=== PATIENT | male | born 1940 | race Caucasian/White ===

== ENCOUNTER 2022-06-16 08:13 | Outpatient (CLI) | payer MEDICARE, OTHER, SELFPAY ==
[2022-06-16 09:13] LABS: Albumin* 4.5 g/dL (3.3-5.0); Chloride* 101 mmol/L (96-114); Potassium* 4.3 mmol/L (3.6-5.1); Sodium* 139 mmol/L (135-149)
[2022-06-16 09:15] LABS: Aspartate Amino Transferase* 28 U/L (12-35); Bilirubin Total* 0.6 mg/dL (0.1-1.5); Carbon Dioxide* 32 mmol/L (20-32); Cholesterol* 151 mg/dL (90-199); Creatinine* 0.9 mg/dL (0.5-1.5); Estimated Glomerular Filt Rate 85 ml/min; Total Protein* 6.8 g/dL (6.0-8.3)
[2022-06-16 09:16] LABS: Alanine Aminotransferase* 18 U/L (4-50); Alkaline Phosphatase* 67 U/L (40-150); Blood Urea Nitrogen* 15 mg/dL (7-30); Calcium* 9.8 mg/dL (8.4-10.6); Glucose* 95 mg/dL (60-115); HDL Cholesterol* 50 mg/dL (>=40); LDL Cholesterol Calculated 80 mg/dL (<100); Triglycerides* 103 mg/dL (40-149)
== END 2022-06-16 08:14 | disposition home or self-care (01) ==
LOC: NFLDREF 08:14
PROVIDERS: PCP Internal Medicine; Visit Provider Internal Medicine
DX: E78.5 Hyperlipidemia, unspecified (principal); I10 Essential (primary) hypertension; Z12.5 Encounter for screening for malignant neoplasm of prostate
CPT/HCPCS: 80053; 80061; 84153

== ENCOUNTER 2023-06-26 07:32 | Outpatient (CLI) | payer MEDICARE, OTHER, SELFPAY ==
--- OUTSIDE RECORDS SUMMARY | 2023-06-28 05:52 | XMS_ITS | Continuity of Care Document ---
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 Name Role Phone Diogenes Galindo MD Unavailable Unavailable Allergies, Adverse Reactions, Alerts Substance Reaction Status Criticality Sulfa (Sulfonamide Antibiotics) Active No Information Medications Medication Instructions Dosage Effective Dates (start - stop) Status Comments tramadol 50 mg tablet Take 1 tablet at bedtime as needed - Active SIMVASTATIN (unknown strength) Not Available - Active HYDROCHLOROTHIAZIDE (unknown strength) Not Available - Active Procedures Procedure Date Postop Followup Visit Postop Followup Visit PSF, Lumbar - PA PSF - Additional Level(s) - PA Lami, Facetectomy/Foraminotomy, Lumbar ( Stenosis) Lami, Facetectomy/Foraminotomy - Additio nal Level(s) - PA Posterior Instrumentation, 3-6 Segments - PA PSF, Lumbar PSF - Additional Level(s) Lami, Facetectomy/Foraminotomy, Lumbar ( Stenosis) Lami, Facetectomy/Foraminotomy - Additio nal Level(s) Posterior Instrumentation, 3-6 Segments Office/Outpatient Visit,Est, Mod 2022 Office/Outpatient Visit,Est, Mod 2022 X-Ray Exam Lwr Spine, Min 4 Views Postop Followup Visit Postop Followup Visit Lami, Facetectomy/Foraminotomy, Lumbar ( Stenosis) Lami, Facetectomy/Foraminotomy - Additio nal Level(s) - PA Lami, Facetectomy/Foraminotomy, Lumbar ( Stenosis) Lami, Facetectomy/Foraminotomy - Additio nal Level(s) Office/Outpatient Visit,Est, Mod 2020 Physician Telephone Evaluation 11-20 Min Office/Outpatient Visit,New, Mod 2018 Advance Directives Directive Yes / No Effective Date File Name No Information Encounters Encounter Description Practice Location Reason(s) For Visit Diagnoses Date Provider Providers Copied on Encounter [facility], [address], [facility], [id number] , [place] tel:[phone] [facility] No Information 3 Mateo Shetty. [facility], [address] [place] [address], [id number], [place]. tel:[phone] [facility], [address], [place], [place], [id number] , [place] tel:[phone] [facility] Encounter for follow-up examination after completed treatment for conditions other than malignant neoplasm 3 Mateo Shetty. [facility], [address] [place] [address], [facility] [address], [place], [id number], [place]. tel:[phone] Referring Provider: Nico Reed, [facility] [address] [place], [address]. tel:[phone] [facility], [address], [facility], [place], [id number] , [place] tel:[phone] [facility] Encounter for follow-up examination after completed treatment for conditions other than malignant neoplasm 3 Reuben Fried. [facility], [address] [place] [address], [address], [place]. tel:[phone] Referring Provider: Nico Reed, [facility] [address] [place], [address]. tel:[phone] [facility], [address], [facility] [place], [id number] , [place] tel:[phone] [facility] No Information Raymond-0 3 Reubenpramod Fried. [facility], [address], [address], [place]. tel:[phone] Referring Provider: Nico Reed, [facility] [address] [place], [address]. tel:[phone] [facility], [address], [facility] [place], [id number] , [place] tel:[phone] [facility] No Information Raymond-0 3 Mateo Diogenes. [facility], [address] [place] [address], [address], [id number], [place]. tel:[phone] Referring Provider: Nico Reed, [facility] [address] [place], [address]. tel:[phone] Office/Outpa tient Visit,Est, Mod [facility], [address], [facility] [place], [id number] , [place] tel:[phone] [facility] [place] Spinal stenosis, lumbar region with neurogenic claudication Apr-0 3 Mateo Shetty. [facility], [address] [place], [address], [id number], [place]. tel:[phone] Referring Provider: Nico Reed, [facility] [address] [place], [address]. tel:[phone] Office/Outpa tient Visit,Est, Mod [facility], [address], [facility] [place], [id number] , [place] tel:[phone] [facility] Other spondylosis with radiculopathy , lumbar regionOther forms of scoliosis, lumbar region Mar-0 8 3 Reuben Fried. [facility], [address] [facility] [address], [place], [address], [place]. tel:[phone] Referring Provider: Nico Reed, [facility] [address] [place], [address]. tel:[phone] [facility], [address], [place], [id number] , [place] tel:[phone] [facility] Encounter for follow-up examination after completed treatment for conditions other than malignant neoplasm 1 Mateo Shetty. [facility], [address] [place] [address], Sukh [address] [place] [address], [id number], [place]. tel:[phone] Referring Provider: Nico Reed, [facility] [address] [place], [address]. tel:[phone] [facility], [address], [facility] [place], [id number] , [place] tel:[phone] [facility] Encounter for other specified surgical aftercare 1 No Information Referring Provider: Nico Reed, [facility] [address] [place], [address]. tel:[phone] [facility], [address], [facility] [place], [id number] , [place] tel:[phone] [facility] No Information 1 No Information Referring Provider: Nico Reed, [facility] [address] [place], [address]. tel:[phone] [facility], [address], [facility], [place], [id number] , [place] tel:[phone] [facility] No Information 1 Mateo Shetty. [facility], [address], [place] [address], [place], [id number], [place]. tel:[phone] Referring Provider: Nico Reed, [facility] [address] [place], [address]. tel:[phone] Office/Outpa tient Visit,Est, Mod [facility], [address], [place], [place], [id number] , [place] tel:[phone] [facility] Spinal stenosis, lumbar region with neurogenic claudication [address] [facility], [address] [place] [address], Sukh [address] [place] [address], [id number], [place]. tel:[phone] Referring Provider: Nico Reed, [facility] [address] [place], [address]. tel:[phone] Physician Telephone Evaluation 11-20 Min [facility], [address], [place], [place], [id number] , [place] tel:[phone] [facility] No Information [address] [facility], [address] [place] [address], [address], [id number], [place]. tel:[phone] Referring Provider: Nico Reed, [facility] [address] [place], [address]. tel:[phone] Office/Outpa tient Visit,New, Mod [facility], [address], [place], [place], [id number] , [place] tel:[phone] [facility] Spinal stenosis, lumbar region with neurogenic claudicationR adiculopathy, lumbar region 0-201 9 No Information Referring Provider: Nico Reed, [facility] [address] [place], [address]. tel:[phone] Family History Family Member Type Diagnosis Age At Onset No Information Payers Payer name Insurance type Covered constitution party ID Authorermaa tilinda(s) Medicare MB [id number] For Life/Retired Prisca [id number] Social History Type Description Quantity Date Captured Comments Sex Male Smoking Status No Information Chief Complaint And Reason For Visit No Information Reason For Referral Reason For Referral No Information History Of Present Illness Encounter Date Complaint History Of Prese nt Illness No Information Functional Status Date Functional Assessmen t No Information Instructions Date Instruction Additional Infor mation No Information Assessments Type Assessment Date No Information Patient Care Teams Name Effective Dates (start - stop) Status Members No Information
== END 2023-06-26 07:33 | disposition home or self-care (01) ==
LOC: NFLDREF 06-28 05:50
PROVIDERS: PCP Internal Medicine; Referring Provider Internal Medicine; Visit Provider Internal Medicine
DX: E78.5 Hyperlipidemia, unspecified (principal); I10 Essential (primary) hypertension; Z12.5 Encounter for screening for malignant neoplasm of prostate
CPT/HCPCS: 80053; 80061; 84153

== ENCOUNTER 2024-03-19 14:11 | Outpatient (CLI) | payer MEDICARE, OTHER, SELFPAY ==
--- OUTSIDE RECORDS SUMMARY | 2024-03-19 14:14 | XMS_ITS | Continuity of Care Document ---
Author Name [facility] Organization [facility] Care Team Providers Care Lens Silverer Name Role Phone [facility] Unavailable Unavailable Problems Combined list of problems from Department of Defense and Veterans Affairs facilities. It does not include entries that were removed or entered in error. Problem Status Onset Date Problem Type Date of Resolution Comments Source HTN - Hypertension ([facility] [id number]) Active Condition [facility] Hyperlipidemia ([facility] [id number]) Active Condition [facility] Low back pain Active Condition Dec Entered By: BRIGETTE PHILLIPS Comment: MRI 2018 severe b/l lumbar foraminal stenosis w nerve root impingement and disc henriationSep 2021 Entered By: BRIGETTE PHILLIPS Comment: back surgery 2020 [facility] Past med/surg/fam/soc history Active Condition Jan 21, 2020 Entered By: BRIGETTE PHILLIPS Comment: co-managed care - [facility]. pcp Dr. Somers, [facility] pain; labs nonVAJul 2019 Entered By: BRIGETTE PHILLIPS Comment: PMHx - h/o lung lesion stable, h/o dizziness, EDJul 2019 Entered By: BRIGETTE PHILLIPS Comment: SHx - neg tobaccoJul 2019 Entered By: BRIGETTE PHILLIPS Comment: Lab - Cr 0.8, LDL 97Jul 2019 Entered By: BRIGETTE PHILLIPS Comment: PShx - 2 hernia surgeryJul 2019 Entered By: BRIGETTE PHILLIPS Comment: Fhx- mom - cancer [facility] Tinnitus Active Condition [facility] Diagnosis: ICD-10-CM I10 Essential (primary) hypertension Active Diagnosis [facility] Medications Combined list of outpatient medications from Department of Defense and Veterans Affairs facilities.Medications provided include 1) outpatient medications from the last 15 months, and 2) patient-reported medications. Medication Details Route Status Patient Instructions Prescription Expires Prescription Number Last Dispense Date Ordering Provider Order Date Order Qty Source ASPIRIN 81MG TAB,EC ASPIRIN 81MG TAB,EC Non-VA TAKE ONE TABLET BY MOUTH Mar 02, 2021 Non-VA Document ed by: BRIGETTE PHILLIPS Document ed at: [facility] BRIGETTE PHILLIPS 2020 [facility] FLUTICASONE PROPIONATE (FLUTICASON E PROPIONATE) , 50 MCG, SPRAY SUSP, NASAL, [employer] 16 g AER W/ADAP Active [id number] 4 2023 48 Pharmac y Data Transac tion Service Facilit y FLUTICASONE PROPIONATE (FLUTICASON E PROPIONATE) , 50 MCG, SPRAY SUSP, NASAL, [employer] 16 g AER W/ADAP Active [id number] 4 2023 48 Pharmac y Data Transac tion Service Facilit y HYDROCHLORO THIAZIDE (hydrochlor othiazide), 25 MG, TABLET, ORAL, [employer] 1000 ea. BOTTLE Active [id number] 4 2023 90 Pharmac y Data Transac tion Service Facilit y HYDROCHLORO THIAZIDE (hydrochlor othiazide), 25 MG, TABLET, ORAL, [employer] 1000 ea. BOTTLE Cancele d [id number] : 2023 0 Pharmac y Data Transac tion Service Facilit y HYDROCHLORO THIAZIDE (hydrochlor othiazide), 25 MG, TABLET, ORAL, [employer] 1000 ea. BOTTLE Active [id number] 2023 90 Pharmac y Data Transac tion Service Facilit y HYDROCHLORO THIAZIDE (hydrochlor othiazide), 25 MG, TABLET, ORAL, [employer] 1000 ea. BOTTLE Active [id number] 4 2023 90 Pharmac y Data Transac tion Service Facilit y HYDROCHLORO THIAZIDE (hydrochlor othiazide), 25 MG, TABLET, ORAL, [employer] 1000 ea. BOTTLE Cancele d [id number] : 2023 0 Pharmac y Data Transac tion Service Facilit y HYDROCHLORO THIAZIDE 25MG TAB HYDROCHL OROTHIAZ APRIL 25MG TAB Non-VA TAKE ONE TABLET BY MOUTH DAILY Jan 06, 2020 Non-VA Document ed by: BRIGETTE PHILLIPS Document ed at: [facility] ORAL ACTIVE BRIGETTE PHILLIPS 2014 [facility] IBUPROFEN TAB IBUPROFE N TAB Non-VA TAKE 200MG PRN FOR BACK SURGERY BY MOUTH THREE TIMES A DAY Mar 13, 2022 Non-VA Document ed by: BRIGETTE PHILLIPS Document ed at: [facility] ORAL ACTIVE BRIGETTE PHILLIPS 2021 [facility] MULTIVITAMI NS/MINERALS TAB MULTIVIT AMINS/NH NERALS TAB Non-VA TAKE BY MOUTH Mar 02, 2021 Non-VA Document ed by: BRIGETTE PHILLIPS Document ed at: [facility] ORAL ACTIVE BRIGETTE PHILLIPS 2020 [facility] SIMVASTATIN (simvastati n), 20 MG, TABLET, ORAL, [employer], 1000 ea. BOTTLE Cancele d [id number] : 2023 0 Pharmac y Data Transac tion Service Facilit y SIMVASTATIN (simvastati n), 20 MG, TABLET, ORAL, [employer] [facility], 1000 ea. BOTTLE Active [id number] 4 2023 90 Pharmac y Data Transac tion Service Facilit y SIMVASTATIN (simvastati n), 20 MG, TABLET, ORAL, [employer] [facility], 1000 ea. BOTTLE Active [id number] 4 2023 90 Pharmac y Data Transac tion Service Facilit y SIMVASTATIN 40MG TAB SIMVASTA TIN 40MG TAB Non-VA TAKE ONE-HALF TABLET BY MOUTH AT BEDTIME Mar 13, 2022 Non-VA Document ed by: BRIGETTE PHILLIPS Document ed at: [facility] ORAL ACTIVE BRIGETTE PHILLIPS 2009 [facility] Allergies, Adverse Reactions, Alerts Combined list of allergies from Department of Defense and Veterans Affairs facilities. It does not include entries that were removed or entered in error. Substance Category Reaction Severity Reaction type Status Date Reported Comments Source DARUNAVIR Drug allergy (disorder) Urticaria active 0 [facility] Propensity to adverse reactions to drug (finding) Urticaria active 0 [facility] Immunizations Combined list of available immunizations from the Department of Defense and Veterans Affairs facilities. Immunization Series Date Given Administered By Site Reaction Lot Number CVX Code Drug Entry Level Assistant Manager Status Comments Source INFLUENZA, HIGH-DOSE, QUADRIVALENT 2022 NANCIE CLAUDIO LEFT DELTO ID [id number] 197 complet ed [facility] COVID-19 (PFIZER), MRNA, LNP-S, BIVALENT, PF, 30 MCG/0.3 ML DOSE 2021 300 complet ed [facility] INFLUENZA, HIGH-DOSE, QUADRIVALENT 2021 197 complet ed [facility] COVID-19 (PFIZER), MRNA, LNP-S, PF, 30 MCG/0.3 ML DOSE 2020 208 complet ed [facility] INFLUENZA, HIGH-DOSE, QUADRIVALENT 2020 197 complet ed [facility] COVID-19 (PFIZER), MRNA, LNP-S, PF, 30 MCG/0.3 ML DOSE 3 2020 208 complet ed [facility] COVID-19 (PFIZER), MRNA, LNP-S, PF, 30 MCG/0.3 ML DOSE 2 2020 208 complet ed PFR; [id number]; 1 [facility] COVID-19 (PFIZER), MRNA, LNP-S, PF, 30 MCG/0.3 ML DOSE 1 2020 208 complet ed PFR; [id number]; 1 [facility] INFLUENZA, INJECTABLE, QUADRIVALENT, PRESERVATIVE FREE 2019 150 complet ed [facility] TDAP 2019 115 complet ed [facility] influenza, high-dose, quadrivalent 2019 DERICK, () Not Given influenza , high-dose , quadrival [facility] INFLUENZA, HIGH-DOSE, QUADRIVALENT 2019 197 complet ed [facility] ZOSTER RECOMBINANT 2 2019 187 complet ed [facility] INFLUENZA, RECOMBINANT, QUADRIVALENT, INJECTABLE, PRESERVATIVE FREE 2018 185 complet ed [facility] zoster recombinant 2018 INGA,HOW PIPER () Not Given zoster recombina nt DoD ZOSTER RECOMBINANT 2018 187 complet ed [facility] zoster recombinant 2017 INGA,HOW PIPER () Not Given zoster recombina nt DoD ZOSTER RECOMBINANT 2017 187 complet ed [facility] zoster recombinant 2017 INGA,HOW PIPER () Not Given zoster recombina nt [facility] INFLUENZA, HIGH DOSE SEASONAL 2017 135 complet ed [facility] ZOSTER RECOMBINANT 1 2017 187 complet ed [facility] INFLUENZA, HIGH DOSE SEASONAL 2016 135 complet ed [facility] Pneumococcal conjugate PCV 13 2014 KIND, () Not Given Pneumococ meggan conjugate PCV 13 DoD Influenza, high dose seasonal 2014 KIND, () Not Given Influenza , high dose seasonal DoD PNEUMOCOCCAL CONJUGATE PCV 13 2014 133 complet ed Written documenta tion [facility] INFLUENZA, HIGH DOSE SEASONAL 2013 135 complet ed [facility] hepatitis A and hepatitis B vaccine 2 2012 Unknown, Provider [id number] 4AA 104 Smithine (SKB) complet ed hepatitis A and hepatitis B vaccine DoD typhoid Vi capsular polysaccharid e vaccine 1 2012 Unknown, Provider [id number] Sanofi Pasteur ([facility]) complet ed typhoid Vi capsular polysacch aride vaccine DoD hepatitis A and hepatitis B vaccine 1 2012 Unknown, Provider [id number] 4AA 104 [employer] (SKB) complet ed hepatitis A and hepatitis B vaccine DoD Influenza, seasonal, injectable, preservative free 3 2011 Unknown, Provider [id number] 140 [employer] (CSL) complet ed Influenza , seasonal, injectabl e, preservat kirk free DoD tetanus toxoid, reduced diphtheria toxoid, and acellular pertu is vaccine, adsorbed 1 2010 Unknown, Provider [id number] 3AA 115 [employer] (SKB) complet ed tetanus toxoid, reduced diphtheri a toxoid, and acellular pertussis vaccine, adsorbed DoD Influenza, seasonal, injectable, preservative free 2 2010 Unknown, Provider [id number] 1A 140 [facility] [employer] ([facility]) complet ed Influenza , seasonal, injectabl e, preservat kirk free [facility] TDAP 2010 115 complet ed [facility] influenza virus vaccine, split virus (incl. purified surface antigen)-reti red CODE 1 2009 Unknown, Provider [id number] [facility] [employer] ([facility]) complet ed influenza virus vaccine, split virus (incl. purified surface antigen)- retired CODE [facility] TDAP 2009 115 complet [facility] zoster vaccine, live 1 2008 Unknown, Provider [id number] Merck (MSD) complet ed zoster vaccine, live DoD ZOSTER LIVE 2008 121 complet ed [facility] INFLUENZA, SEASONAL, INJECTABLE, PRESERVATIVE FREE 2008 140 complet [facility] INFLUENZA, UNSPECIFIED FORMULATION 2005 88 complet [facility] INFLUENZA, UNSPECIFIED FORMULATION 2004 88 complet [facility] PNEUMOCOCCAL POLYSACCHARID E PPV23 2004 33 complet [facility] INFLUENZA, UNSPECIFIED FORMULATION 2003 88 complet [facility] INFLUENZA, UNSPECIFIED FORMULATION 2002 88 complet [facility] TD (ADULT), 2 LF TETANUS TOXOID, PRESERVATIVE FREE, ADSORBED 1999 09 complet [facility] Results Combined list of recent chemistry, hematology and other laboratory results from Department of Defense and Veterans Affairs, ranging from 15 months to all on record, depending upon the facility. Order Name Results Value Reference Range Date Interpretation Specimen Comments Source CBC LEUKOCYTES [#/VOLUME] IN BLOOD BY AUTOMATED COUNT 6.61 10*3/uL 4.0 - 11.0 03/29 Specimen Type: BLOOD No comment entered. Ordering Provider: GM PHILLIPS Report Released Date/Time: Mar 27, 2022 02:29 PM Reporting Lab: [facility] [address] Performing Lab: [facility] [address] [facility] CBC ERYTHROCYT ES [#/VOLUME] IN BLOOD BY AUTOMATED COUNT 5.04 10*6/uL 4.6 - 6.2 03/29 Specimen Type: BLOOD No comment entered. Ordering Provider: GM PHILLIPS Report Released Date/Time: Mar 27, 2022 02:29 PM Reporting Lab: [facility] [address] Performing Lab: [facility] [address] [facility] CBC HEMOGLOBIN [MASS/VOLU ME] IN BLOOD 15.9 g/dL 13.5 - 17.9 03/29 Specimen Type: BLOOD No comment entered. Ordering Provider: GM PHILLIPS Report Released Date/Time: Mar 27, 2022 02:29 PM Reporting Lab: [facility] [address] Performing Lab: [facility] [address] [facility] CBC HEMATOCRIT [VOLUME FRACTION] OF BLOOD BY AUTOMATED COUNT 46.1 41 - 54 03/29 Specimen Type: BLOOD No comment entered. Ordering Provider: GM PHILLIPS Report Released Date/Time: Mar 27, 2022 02:29 PM Reporting Lab: [facility] [address] Performing Lab: [facility] [address] [facility] CBC MCV [ENTITIC VOLUME] BY AUTOMATED COUNT 91.5 fL 80 - 100 03/29 Specimen Type: BLOOD No comment entered. Ordering Provider: GM PHILLIPS Report Released Date/Time: Mar 27, 2022 02:29 PM Reporting Lab: [facility] [address] Performing Lab: [facility] [address] [facility] CBC MCH [ENTITIC MASS] BY AUTOMATED COUNT 31.5 pg 27 - 33 03/29 Specimen Type: BLOOD No comment entered. Ordering Provider: GM PHILLIPS Report Released Date/Time: Mar 27, 2022 02:29 PM Reporting Lab: [facility] [address] Performing Lab: [facility] [address] [facility] CBC MCHC [MASS/VOLU ME] BY AUTOMATED COUNT 34.5 g/dL 32.0 - 37.5 09/28 /2023 Specimen Type: BLOOD No comment entered. Ordering Provider: GM PHILLIPS Report Released Date/Time: Mar 27, 2022 02:29 PM Reporting Lab: [facility] [address] Performing Lab: [facility] [address] [facility] CBC PLATELETS [#/VOLUME] IN BLOOD BY AUTOMATED COUNT 230 10*3/uL 150 - 400 03/29 Specimen Type: BLOOD No comment entered. Ordering Provider: GM PHILLIPS Report Released Date/Time: Mar 27, 2022 02:29 PM Reporting Lab: [facility] [address] Performing Lab: [facility] [address] [facility] CBC PLATELET MEAN VOLUME [ENTITIC VOLUME] IN BLOOD BY AUTOMATED COUNT 11.4 fL 7.4 - 10.4 03/29 H Specimen Type: BLOOD No comment entered. Ordering Provider: GM PHILLIPS Report Released Date/Time: Mar 27, 2022 02:29 PM Reporting Lab: [facility] [address] Performing Lab: [facility] [address] [facility] CBC ERYTHROCYT E DISTRIBUTI ON WIDTH [RATIO] BY AUTOMATED COUNT 12.9 11.5 - 14.5 03/29 Specimen Type: BLOOD No comment entered. Ordering Provider: GM PHILLIPS Report Released Date/Time: Mar 27, 2022 02:29 PM Reporting Lab: [facility] [address] Performing Lab: [facility] [address] [facility] COMPREHE NSIVE METABOLI C PANEL+MG CREATININE [MASS/VOLU ME] IN SERUM OR PLASMA 1.0 mg/dL 0.7 - 1.2 03/29 Specimen Type: PLASMA No comment entered. Ordering Provider: GM PHILLIPS Report Released Date/Time: Mar 27, 2022 02:29 PM Reporting Lab: [facility] [address] Performing Lab: [facility] [address] [facility] COMPREHE NSIVE METABOLI C PANEL+MG UREA NITROGEN [MASS/VOLU ME] IN SERUM OR PLASMA 16 mg/dL 8 - 26 03/29 Specimen Type: PLASMA No comment entered. Ordering Provider: GM PHILLIPS Report Released Date/Time: Mar 27, 2022 02:29 PM Reporting Lab: [facility] [address] Performing Lab: [facility] [address] [facility] COMPREHE NSIVE METABOLI C PANEL+MG GLUCOSE [MASS/VOLU ME] IN SERUM OR PLASMA 104 mg/dL 70 - 100 03/29 H Specimen Type: PLASMA No comment entered. Ordering Provider: GM PHILLIPS Report Released Date/Time: Mar 27, 2022 02:29 PM Reporting Lab: [facility] [address] Performing Lab: [facility] [address] [facility] COMPREHE NSIVE METABOLI C PANEL+MG SODIUM [MOLES/VOL UME] IN SERUM OR PLASMA 140 mmol/L 136 - 145 03/29 Specimen Type: PLASMA No comment entered. Ordering Provider: GM PHILLIPS Report Released Date/Time: Mar 27, 2022 02:29 PM Reporting Lab: [facility] [address] Performing Lab: [facility] [address] [facility] COMPREHE NSIVE METABOLI C PANEL+MG POTASSIUM [MOLES/VOL UME] IN SERUM OR PLASMA 3.7 mmol/L 3.5 - 5.1 03/29 Specimen Type: PLASMA No comment entered. Ordering Provider: GM PHILLIPS Report Released Date/Time: Mar 27, 2022 02:29 PM Reporting Lab: [facility] [address] Performing Lab: [facility] [address] [facility] COMPREHE NSIVE METABOLI C PANEL+MG CHLORIDE [MOLES/VOL UME] IN SERUM OR PLASMA 101 mmol/L 98 - 107 03/29 Specimen Type: PLASMA No comment entered. Ordering Provider: GM PHILLIPS Report Released Date/Time: Mar 27, 2022 02:29 PM Reporting Lab: [facility] [address] Performing Lab: [facility] [address] [facility] COMPREHE NSIVE METABOLI C PANEL+MG CARBON DIOXIDE, TOTAL [MOLES/VOL UME] IN SERUM OR PLASMA 30 mmol/L 22 - 29 03/29 H Specimen Type: PLASMA No comment entered. Ordering Provider: GM PHILLIPS Report Released Date/Time: Mar 27, 2022 02:29 PM Reporting Lab: [facility] [address] Performing Lab: [facility] [address] [facility] COMPREHE NSIVE METABOLI C PANEL+MG CALCIUM [MASS/VOLU ME] IN SERUM OR PLASMA 9.6 mg/dL 8.4 - 10.2 03/29 Specimen Type: PLASMA No comment entered. Ordering Provider: GM PHILLIPS Report Released Date/Time: Mar 27, 2022 02:29 PM Reporting Lab: [facility] [address] Performing Lab: [facility] [address] [facility] COMPREHE NSIVE METABOLI C PANEL+MG PROTEIN [MASS/VOLU ME] IN SERUM OR PLASMA 7.3 g/dL 6.0 - 8.3 03/29 Specimen Type: PLASMA No comment entered. Ordering Provider: GM PHILLIPS Report Released Date/Time: Mar 27, 2022 02:29 PM Reporting Lab: [facility] [address] Performing Lab: [facility] [address] [facility] COMPREHE NSIVE METABOLI C PANEL+MG ALBUMIN [MASS/VOLU ME] IN SERUM OR PLASMA 4.4 g/dL 3.5 - 5.2 03/29 Specimen Type: PLASMA No comment entered. Ordering Provider: GM PHILLIPS Report Released Date/Time: Mar 27, 2022 02:29 PM Reporting Lab: [facility] [address] Performing Lab: [facility] [address] [facility] COMPREHE NSIVE METABOLI C PANEL+MG BILIRUBIN. TOTAL [MASS/VOLU ME] IN SERUM OR PLASMA 0.7 mg/dL 0.2 - 1.2 03/29 Specimen Type: PLASMA No comment entered. Ordering Provider: GM PHILLIPS Report Released Date/Time: Mar 27, 2022 02:29 PM Reporting Lab: [facility] [address] Performing Lab: [facility] [address] [facility] COMPREHE NSIVE METABOLI C PANEL+MG MAGNESIUM [MASS/VOLU ME] IN SERUM OR PLASMA 2.2 mg/dL 1.6 - 2.6 03/29 Specimen Type: PLASMA No comment entered. Ordering Provider: GM PHILLIPS Report Released Date/Time: Mar 27, 2022 02:29 PM Reporting Lab: [facility] [address] Performing Lab: [facility] [address] [facility] COMPREHE NSIVE METABOLI C PANEL+MG ANION GAP IN SERUM OR PLASMA 9 mmol/L 5 - 15 03/29 Specimen Type: PLASMA No comment entered. Ordering Provider: GM PHILLIPS Report Released Date/Time: Mar 27, 2022 02:29 PM Reporting Lab: [facility] [address] Performing Lab: [facility] [address] [facility] COMPREHE NSIVE METABOLI C PANEL+MG ALKALINE PHOSPHATAS E [ENZYMATIC ACTIVITY/V OLUME] IN SERUM OR PLASMA 61 U/L 40 - 150 03/29 Specimen Type: PLASMA No comment entered. Ordering Provider: GM PHILLIPS Report Released Date/Time: Mar 27, 2022 02:29 PM Reporting Lab: [facility] [address] Performing Lab: [facility] [address] [facility] COMPREHE NSIVE METABOLI C PANEL+MG ALANINE AMINOTRANS FERASE [ENZYMATIC ACTIVITY/V OLUME] IN SERUM OR PLASMA 17 U/L <55 - 55 03/29 Specimen Type: PLASMA No comment entered. Ordering Provider: GM PHILLIPS Report Released Date/Time: Mar 27, 2022 02:29 PM Reporting Lab: [facility] [address] Performing Lab: [facility] [address] [facility] COMPREHE NSIVE METABOLI C PANEL+MG ASPARTATE AMINOTRANS FERASE [ENZYMATIC ACTIVITY/V OLUME] IN SERUM OR PLASMA 21 U/L <34 - 34 03/29 Specimen Type: PLASMA No comment entered. Ordering Provider: GM PHILLIPS Report Released Date/Time: Mar 27, 2022 02:29 PM Reporting Lab: [facility] [address] Performing Lab: [facility] [address] [facility] COMPREHE NSIVE METABOLI C PANEL+MG GLOMERULAR FILTRATION RATE/1.73 SQ M.PREDICTE D [VOLUME RATE/AREA] IN SERUM, PLASMA OR BLOOD BY CREATININE -BASED FORMULA (CKD-EPI 2020) 74 60 03/29 Specimen Type: PLASMA No comment entered. Ordering Provider: GM PHILLIPS Report Released Date/Time: Mar 27, 2022 02:29 PM Reporting Lab: [facility] [address] Performing Lab: [facility] [address] [facility] HIV AG/AB SCREEN HIV 1+2 AB+HIV1 P24 AG [PRESENCE] IN SERUM OR PLASMA BY IMMUNOASSA Y NEGATIVE 03/29 Specimen Type: SERUM No comment entered. Ordering Provider: GM PHILLIPS Report Released Date/Time: Mar 27, 2022 02:29 PM Reporting Lab: [facility] [address] Performing Lab: [facility] [address] [facility] LIPID PANEL,NO N-FASTIN G CHOLESTERO L [MASS/VOLU ME] IN SERUM OR PLASMA 162 mg/dL <199 - 199 03/29 Specimen Type: PLASMA No comment entered. Ordering Provider: GM PHLILIPS Report Released Date/Time: Mar 27, 2022 02:29 PM Reporting Lab: [facility] [address] Performing Lab: [facility] [address] [facility] LIPID PANEL,NO N-FASTIN G CHOLESTERO L IN HDL [MASS/VOLU ME] IN SERUM OR PLASMA 49 mg/dL 40 03/29 Specimen Type: PLASMA No comment entered. Ordering Provider: GM PHILLIPS Report Released Date/Time: Mar 27, 2022 02:29 PM Reporting Lab: [facility] [address] Performing Lab: [facility] [address] [facility] LIPID PANEL,NO N-FASTIN G CHOLESTERO L IN LDL [MASS/VOLU ME] IN SERUM OR PLASMA BY CALCULATIO N 91 mg/dL <99 - 99 03/29 Specimen Type: PLASMA No comment entered. Ordering Provider: GM PHILLIPS Report Released Date/Time: Mar 27, 2022 02:29 PM Reporting Lab: [facility] [address] Performing Lab: [facility] [address] [facility] LIPID PANEL,NO N-FASTIN G CHOLESTERO L IN VLDL [MASS/VOLU ME] IN SERUM OR PLASMA BY CALCULATIO N 22 mg/dL <29 - 29 03/29 Specimen Type: PLASMA No comment entered. Ordering Provider: GM PHILLIPS Report Released Date/Time: Mar 27, 2022 02:29 PM Reporting Lab: [facility] [address] Performing Lab: [facility] [address] [facility] LIPID PANEL,NO N-FASTIN G CHOLESTERO L NON HDL [MASS/VOLU ME] IN SERUM OR PLASMA 113 mg/dL <129 - 129 03/29 Specimen Type: PLASMA No comment entered. Ordering Provider: GM PHILLIPS Report Released Date/Time: Mar 27, 2022 02:29 PM Reporting Lab: [facility] [address] Performing Lab: [facility] [address] [facility] LIPID PANEL,NO N-FASTIN G TRIGLYCERI DE [MASS/VOLU ME] IN SERUM OR PLASMA 109 mg/dL <149 - 149 03/29 Specimen Type: PLASMA No comment entered. Ordering Provider: GM PHILLIPS Report Released Date/Time: Mar 27, 2022 02:29 PM Reporting Lab: [facility] [address] Performing Lab: [facility] [address] [facility] [address] [facility] Vital Signs Combined list of inpatient and outpatient Vital Signs from Department of [facility] and [facility] Affairs, ranging from 12 months to all on record, depending upon the facility. Vital Sign Value Date Comments Source SYSTOLIC BLOOD PRESSURE 129 03/29/2023 08:50:41 [facility] DIASTOLIC BLOOD PRESSURE 76 03/29/2023 08:50:41 [facility] PULSE OXIMETRY 97% 03/29/2023 08:50:41 [facility] WEIGHT 203 03/29/2023 08:50:41 [facility] BMI 27kg/m2 03/29/2023 08:50:41 [facility] PAIN 0 03/29/2023 08:50:41 [facility] HEIGHT 72.5 03/29/2023 08:50:41 [facility] TEMPERATURE 98.6 03/29/2023 08:50:41 [facility] PULSE 66 03/29/2023 08:50:41 [facility] RESPIRATION 18 03/29/2023 08:50:41 [facility] Encounters Combined list of: 1) Encounters [facility] facilities going back up to thelast 18 months. 2) Encounters from the Department of [facility] facilities going back up to 280 months. Location Location Details Encounter Type Encounter Number Reason For Visit Attending Provider ADM Date DC Date Status Disposition Source [facility] O/P EST HI 40-54 MIN [id number] Diagnos is: ICD-10- CM I10 Essenti al (primar y) hyperte nsion<b r/> [place],H JANIA SUBRAMANIAN 03/29 [facility] Outpatient Encounter [id number] 03/13 [facility] Social History Combined list of available smoking, tobacco, and other social history from [facility] facilities. Social History Type Response Date Comment Sourc e Tobacco smoking status NHIS NC-TOBACCO NEVER USED 03/29/2023 [facility] History of tobacco use NC-TOBACCO NEVER USED 03/13/2022 [facility] History of tobacco use NC-TOBACCO NEVER USED 03/02/2021 [facility] History of tobacco use NC-TOBACCO NEVER USED 01/06/2020 [facility] This section is an empty social history section. [facility] Plan of Care List of future care activities from [facility] facilities. Additional future care activities may be listed in the Assessment and Plan section. Date/Time Care Activity Care Activity Detail Facili ty 04/04/2024 Laboratory - Chemistry Order EXT RA GOLD GEL TUBE SERUM SP ONCE [facility] 04/04/2024 Laboratory - Chemistry Order CBC BLOOD SP [facility]CE [facility] 04/04/2024 Laboratory - Chemistry Order BAS IC METABOLIC PANEL+MG PLASMA SP [facility] 04/04/2024 Laboratory - Chemistry Order AST/SGOT NABIL SMA SP [facility]CE [facility] 04/04/2024 Laboratory - Chemistry Order ALT/SGPT NABIL SMA SP ONCE [facility] 04/04/2024 Laboratory - Chemistry Order LIP ID PANEL,NON-FASTING PLASMA SP [facility] Advance Directives List of completed, amended, or rescinded Advance Directives on record at [facility] facilities. An actual copy of the Directive is not included. Date Advance Directive Provider Source 04/25/2020 ADVANCE DIRECTIVE EARLINE MANUEL [facility]
--- OUTSIDE RECORDS SUMMARY | 2024-03-19 14:14 | XMS_ITS | Encounter Summary ---
Author Name [facility] Organization [facility] [place] Address [address] [place] [id number] Care Team Providers Care Dog Trainer Name Role Phone KARYNA DÍAZ Primary Care Provider Unavailabl e Insurance Providers: All historical and current Section Date Range: From patient's date of to the date document was created. This section includes the names of all active insurance providers for the patient. Insurance Provider Type of Coverage Plan Name Start of Policy Coverage End of Policy Coverage Group Number Member ID Insurance Provider's Telephone Number Policy Leon's Name Patient's Relationship to Policy Leon MEDICARE (WNR) MEDICARE (M) PART A Aug 31, 2003 PART A [id number] [phone] HELENE WEST PATIENT MEDICARE (WNR) MEDICARE (M) PART B Aug 31, 2003 PART B [id number] [phone] HELENE WEST PATIENT Selected Encounter This section includes the information on record at [place] for the Encounter. Date/Time Encounter Type Encounter Description Reason Provider Source Mar 29, 2023 09:00 AM OFFICE O/P EST HI 40-54 MIN PRIMARY CARE/MEDICINE ICD-10-CM I10 Essential (primary) hypertension LAENNE DÍAZ [facility] Encounter Template Text not used by [place] Assessments - Encounter Diagnoses This section includes the primary and secondary diagnoses documented for the Encounter. Date/Time Primary/Secondary Diagnosis Diagnosis Name Provider Source Apr 05, 2023 09:12 PM PRIMARY Essential (primary) hypertension LEANNE DÍAZ [facility] Apr 05, 2023 09:12 PM SECONDARY Encounter for immunization SHANONANDOM G [facility] Apr 05, 2023 09:12 PM SECONDARY Hyperlipidemia, unspecified LEANNE DÍAZ [facility] Apr 05, 2023 09:12 PM SECONDARY Low back pain, unspecified LEANNE DÍAZ [facility] Apr 05, 2023 09:12 PM SECONDARY Tinnitus, unspecified ear LEANNE DÍAZ [facility] Lab Results: +/- 30 days of the encounter This section includes the Chemistry and Hematology Lab Results on record with [place] for the patient. Radiology Reports and Pathology Reports are provided separately, in subsequent sections. Lab Results This section contains the Chemistry/Hematology Results that were resulted 30 days before or 30 daysafter the date of the Encounter. Date/Time Source Result Type Result - Unit Interpretation Reference Range Comment Mar 29, 2023 08:11 AM [facility] COMPREHENSIVE METABOLIC PANEL+MG Specimen Type: PLASMA No comment entered. Ordering Provider: LEANNE DÍAZ Report Released Date/Time: Mar 27, 2022 02:29 PM Reporting Lab: [facility] [id number] Performing Lab: [facility] [id number] CREATININE 1.0 mg/dL 0.7-1.2 UREA NITROGEN 16 mg/dL 8-26 GLUCOSE 104 mg/dL H 70-100 SODIUM 140 mmol/L 136-145 POTASSIUM 3.7 mmol/L 3.5-5.1 CHLORIDE 101 mmol/L 98-107 CO2 30 mmol/L H 22-29 CALCIUM 9.6 mg/dL 8.4-10.2 PROTEIN,TOTAL 7.3 g/dL 6.0-8.3 ALBUMIN 4.4 g/dL 3.5-5.2 BILIRUBIN, TOTAL 0.7 mg/dL 0.2-1.2 MAGNESIUM 2.2 mg/dL 1.6-2.6 ANION GAP 9 mmol/L 5-15 ALKALINE PHOSPHATASE 61 U/L 40-150 ALT/SGPT 17 U/L <55 AST/SGOT 21 U/L <34 .CREAT EGFR(CKD-EPI) 74 >60 Mar 29, 2023 08:11 AM [facility] CBC Specimen Type: BLOOD No comment entered. Ordering Provider: LEANNE DÍAZ Report Released Date/Time: Mar 27, 2022 02:29 PM Reporting Lab: [facility] [id number] Performing Lab: [facility] [id number] WBC 6.61 10*3/uL 4.0-11.0 RBC 5.04 10*6/uL 4.6-6.2 HGB 15.9 g/dL 13.5-17.9 HCT 46.1 41-54 MCV 91.5 fL 80-100 MCH 31.5 pg 27-33 MCHC 34.5 g/dL 32.0-37.5 PLT 230 10*3/uL 150-400 MPV 11.4 fL H 7.4-10.4 RDW 12.9 11.5-14.5 Mar 29, 2023 08:11 AM [facility] LIPID PANEL,NON-FASTING Specimen Type: PLASMA No comment entered. Ordering Provider: LEANNE DÍAZ Report Released Date/Time: Mar 27, 2022 02:29 PM Reporting Lab: [facility] [id number] Performing Lab: [facility] [phone] CHOLESTEROL 162 mg/dL <199 .HDL 49 mg/dL >40 LDL CALCULATION 91 mg/dL <99 VLDL CALCULATION 22 mg/dL <29 NON HDL CHOLESTEROL 113 mg/dL <129 TRIG(NON FASTING) 109 mg/dL <149 Mar 29, 2023 08:11 AM [facility] HIV AG/AB SCREEN Specimen Type: SERUM No comment entered. Ordering Provider: LEANNE DÍAZ Report Released Date/Time: Mar 27, 2022 02:29 PM Reporting Lab: [facility] [phone] Performing Lab: [facility] [phone] HIV AG/AB SCREEN NEGATIVE NEGATIVE Vital Signs: All taken on the encounter date This section contains inpatient and outpatient Vital Signs collected on the date of the Encounter. Date/Time Temperature Pulse Blood Pressure Respiratory Rate SP02 Pain Height Weight Body Mass Index Source Mar 29, 2023 08:50 AM 98.6 F 66 /min 129/76 mm[Hg] 18 /min 97 % 0 72.5 in 203 lb 27 [facility] Immunizations: All administered on the encounter date This section contains immunizations associated to the Encounter. Immunization Series Date Issued Reaction Comments INFLUENZA, HIGH-DOSE, QUADRIVALENT Mar 29, 2023 Social History: Smoking Status (Most current) and Tobacco Use (All prior to encounter date) This section includes the most current, and the historical, smoking and tobacco- related health factors from the [place] facility where the Encounter took place. Current Smoking Status This section includes the most current smoking, or tobacco-related health factor, from the [place] facility where the Encounter took place. Date/Time Current Smoking Status Comment Benja ity Mar 29, 2023 09:00 AM [place]-TOBACCO NEVER USED [facility] Tobacco Use History This section includes a history of the smoking, or tobacco-related health factors, that were collected on or before the date of the Encounter. The data comes from the [place] facility where the Encounter took place. Date/Time Smoking Status/Tobacco Use Comment F acility Mar 13, 2022 10:00 AM [place]-TOBACCO NEVER USED [facility] Mar 02, 2021 03:30 PM [place]-TOBACCO NEVER USED [facility] Jan 06, 2020 11:08 AM [place]-TOBACCO NEVER USED [facility] Advance Directives: All historical and current Section Date Range: From patient's date of to the date document was created. This section includes ALL of a patient's completed or amended [place] Advance and Rescinded Directives. The entries below indicate that a directive exists for the patient, but an actual copy is not included with this document. The data comes from all [place] facilities. Date Advance Directives Provider Source Apr 25, 2020 ADVANCE DIRECTIVE EARLINE MANUEL [facility] Apr 25, 2020 ADVANCE DIRECTIVE DISCUSSION ANNIKA MANUEL [facility] Encounter Notes: All associated encounter notes This section contains the clinical notes associated to the Encounter. Date/Time Encounter Note(s) Provider Source Mar 29, 2023 11:25 AM ADVANCE DIRECTIVE: LOCAL TITLE: AD NOTIFICATION AND SCREENING STANDARD TITLE: ADVANCE DIRECTIVE DATE OF NOTE: MAR 29, 2023@11:25 ENTRY DATE: MAR 29, 2023@11:25:54 AUTHOR: HUANG YEPEZ COSIGNER: URGENCY: STATUS: COMPLETED ADVANCE DIRECTIVE NOTIFICATION: Patient was given written notification of the following rights: 1. Accept or refuse any medical treatment. 2. Complete a durable power of merchant banker for health care. 3. Complete a living will. ADVANCE DIRECTIVE SCREENING: Does patient have an Advance Directive? The patient has an Advance Directive. Does the patient wish to make any changes or revoke their current Advance Directive? No changes requested at this time. /erika/ HUANG YEPEZ Advance Guest Services Manager Signed: 03/29/2023 11:26 HUANG YEPEZ [facility] Mar 29, 2023 09:49 AM ADMINISTRATIVE NOTE: LOCAL TITLE: AFTER VISIT SUMMARY NOTE STANDARD TITLE: ADMINISTRATIVE NOTE DICT DATE: MAR 29, 2023@09:49:40 ENTRY DATE: MAR 29, 2023@09:49:40 DICTATED BY: KARYNA DÍAZ EXP COSIGNER: URGENCY: STATUS: COMPLETED The patient was provided with a copy of an after-visit summary at the conclusion of the visit. A copy of the after-visit summary provided to the patient is available in [employer]. SCANNED DOCUMENT SIGNATURE NOT REQUIRED Electronically Filed: 03/29/2023 by: Karyna Díaz MD Primary Care Staff Physician KARYNA DÍAZ [facility] Mar 29, 2023 09:38 AM INTERNAL MEDICINE NOTE: LOCAL TITLE: MEDICINE CLINIC NOTE STANDARD TITLE: INTERNAL MEDICINE NOTE DATE OF NOTE: MAR 29, 2023@09:38 ENTRY DATE: MAR 29, 2023@09:38:05 AUTHOR: KARYNA DÍAZ EXP COSIGNER: URGENCY: STATUS: COMPLETED ############################# ############################# ######### F2F Clinic Visit Primary Care PACT [place] [facility]E ############################# ############################# ######### Name: ELIZABETH WEST Age: 82 [address] [place] [address] Occupation: [email or web address] Branch: [employer] ======= Total time spent on patient care including chart/diagnostic/test review, patient interview/examination, ordering medications/tests, interpreting results,and counseling/documentation was 45 minutes. Combined: HPI, ASSESSMENT & PLAN BRETT 03/29/23 09:00 F2F Visit F/U: see current recall or PRN for new /changes in symptoms Had spine surgery since last visit. No pain or sciatica any more. otherwise, no changes to health or meds Add'l concerns see below. ///////////////////////////// ///////////////////////////// /////////// BRETT 03/29/23 09:00 F2F Special/follow up notes: ___Dr. Galindo surgeon; comanaged. See pcp Dr. Somers in may. # Safety- live with . no falls. # Memory - some reduction. Minicog - 0/3, clock ok. 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 Nursing notes reviewed. CC in nursing note/HPI. Updated Problem List as needed re past med/surg/fam/social history. RTC - routine f/u appt in 6-12 m (1yr for co-mged pts). Instructed patient to follow up sooner than discussed / per recall if any new concerns or worsening of symptoms. ///////////////////////////// ///////////////////////////// /////////// Relevant ROS: See HPI. Rest of ROS neg below Patient reports no fever/chills no chest pain/shortness of breath no blood in urine / stool no abdominal pain Med/Surg/Fam/Soc Hx: Reviewed and updated as needed in problem list ======= VS & EXAM ======= Temp: 98.6 F [37.0 C] (03/29/2023 08:50) Resp: 18 (03/29/2023 08:50) Pulse: 66 (03/29/2023 08:50) Pain: 0 (03/29/2023 08:50) Osat 97% (03/29/2023 08:50) Measurement DT BP 03/29/2023 08:50 129/76 03/13/2022 09:29 135/80 03/02/2021 15:11 127/77 Measurement DT WEIGHT LB(KG)[BMI] 03/29/2023 08:50 203(92.08)[27] 03/13/2022 09:29 207(93.89)[28*] 03/02/2021 15:11 210(95.25)[28*] Appearance: awake, alert, NAD; well appearing HEENT: NC/AT, normal conj, no external abnormalities Neck: supple, no deformities Card: Reg rate, good S1, S2, no rubs/gallops Resp: good air mvmt, clear , no wheezes Abd: soft, nondistended, Psych: normal concentration, normal speech also see A/P section for add'l exam findings Labs/tests: see below. See A/P for relevant discussion. See CPRS problem list for any relevant external results PROBLEM LIST (see CPRS for any updates done during the visit) ------- Active problems - Computerized Problem List is the source for the followin. Past med/surg/fam/soc history - co-managed care - [facility]. pcp Dr. Somers, [facility]; labs nonVA - PMHx - h/o lung lesion stable, h/o dizziness, ED - SHx - neg tobacco - Lab - Cr 0.8, LDL 97 - PShx - 2 hernia surgery - Fhx- mom - cancer 2. 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 Hyperlipidemia ([facility] [id number]) 4. HTN - Hypertension ([facility] [id number]) 5. Tinnitus LAB/TEST DATA See CPRS problem list for any additional external results ------- WBC 6.61 (03/29/23) PLT 230 (03/29/23) HGB 15.9 BLOOD (03/29/23 08:11) IRON____ TRANSFERRIN____ TIBC,CALCULATED____ IRON SATURATION____ Na: SODIUM 140 (03/29/23) K: POTASSIUM 3.7 (03/29/23) Cl: CHLORIDE 101 (03/29/23) CO2: CO2 30 H (03/29/23) BUN: UREA NITROGEN 16 (03/29/23) Creatinine: CREATININE 1.0 (03/29/23) Glucose: GLUCOSE 104 H (03/29/23) CREATININE 1.0 PLASMA (03/29/23 08:11) SGOT 21 (03/29/23) SGPT 17 (03/29/23) BILIRUBIN, TOTAL 0.7 (03/29/23) No data available CHOLESTEROL 162 (03/29/23) TRIGLYCERIDE____ HDL 49 (03/29/23) LDL CALCULATION 91 (03/29/23) SLT - Lab Tests Selected Collection DT Specimen Test Name Result Units Ref Range 03/29/2023 08:11 PLASMA LDL CALCULATION 91 mg/dL Ref: <=99 MEASURED LDL____ No data available No data available for: TSH No data available for: HEMOGLOBIN A1C POC HGB A1C TP HEMOGLOBIN A1C Patient was informed of available lab, imaging, and other study results noted and/or associated with today's visit. Completed medication reconciliation during the visit and updated medication list in CPRS. Provided patient/caregiver regarding any changes and possible side effects, interactions, contraindications and precautions. Patient/caregiver asked to contact clinic with any questions or concerns. Discussed plan of care with patient/caregiver and instructed to contact clinic for any questions/clarifications. Discussed the importance of seeking care TARA if any changes/worsening of symptoms, or if any new/concerning symptoms. Patient/caregiver voice understanding of above and no further questions. ------ Medication Reconciliation: Education Evaluations *Was medication education provided for NEW medications or CHANGES to medications? (including medication name, dose, route, reason for use, and potential side effects). Yes. Verbal education was provided to patient/caregiver and patient/caregiver verbalized understanding. TERATOGENIC MED & CONTRACEPTION REVIEW (Optional)... = MEDICATION RECONCILIATION = List Given: An updated medication list was provided to the patient/caregiver. Review Done: The medication list shown below was verified for accuracy and it includes all pending medications/active medications/all medications or discontinued within the last 90 days/all remote medications and non-VA medications. If a given category (i.e. remote meds) is not shown, that means that a patient doesn't have a medication(s) in that category. Allergies listed below were also reviewed/updated for accuracy. Allergies/ADR from [employer] may not display in CPRS. Use JLV Allergies: SULFA DRUGS (Jan 16, 2020) For most uptodate list reflecting medication changes from today's visit, please see Meds Tab or the active orders section. Active and Recently Outpatient Medications (including Supplies): Start Date Active Non-VA Medications Refills Expiration 1) Non-VA ASPIRIN 81MG EC TAB SiMG ACTIVE MOUTH 2) Non-VA HYDROCHLOROTHIAZIDE 25MG TAB ACTIVE SiMG MOUTH DAILY 3) Non-VA IBUPROFEN TAB SiMG PRN FOR ACTIVE BACK SURGERY MOUTH THREE TIMES A DAY 4) Non-VA MULTIVITAMINS/MINERALS TAB Sig: ACTIVE MOUTH 5) Non-VA SIMVASTATIN 40MG TAB SiMG ACTIVE MOUTH AT BEDTIME // Karyna Díaz MD Primary Care Staff Physician Signed: 04/05/2023 21:12 KARYNA DÍAZ [facility] Mar 29, 2023 08:52 AM INTERNAL MEDICINE OUTPATIENT NOTE: LOCAL TITLE: MEDICINE CLINIC NURSING NOTE STANDARD TITLE: INTERNAL MEDICINE OUTPATIENT NOTE DATE OF NOTE: MAR 29, 2023@08:52 ENTRY DATE: MAR 29, 2023@08:52:26 AUTHOR: BRYANNA WINSTON EXP COSIGNER: URGENCY: STATUS: COMPLETED TYPE OF VISIT: Appointment Check In Type of appointment: In-person appointment REASON FOR VISIT: Annual ALLERGIES: SULFA DRUGS (Jan 16, 2020) VITAL SIGNS: Blood Pressure: 129/76 (03/29/2023 08:50) Pulse: 66 (03/29/2023 08:50) Respiration: 18 (03/29/2023 08:50) Temperature: 98.6 F [37.0 C] (03/29/2023 08:50) Weight: 203 lb [92.08 kg] (03/29/2023 08:50) Height: 72.5 in [184.2 cm] (03/29/2023 08:50) BMI: 27.2 O2 Sat: 97% (03/29/2023 08:50) Pain: 0 (03/29/2023 08:50) PAIN SCREEN: Patient is not having significant pain that they wish to discuss with their provider today. Tobacco Use Screening: The patient has never used tobacco. Alcohol Use Screen (AUDIT-C): Alcohol Screen: SCREEN FOR ALCOHOL (AUDIT-C) An alcohol screening test (AUDIT-C) was negative (score=4). 1. How often did you have a drink containing alcohol in the past year? Four or more times a week 2. How many drinks containing alcohol did you have on a typical day when you were drinking in the past year? One or two drinks 3. How often did you have six or more drinks on one occasion in the past year? Never Depression Screening: Perform PHQ-2 A PHQ-2 screen was performed. The score was 0 which is a negative screen for depression. Over the past two weeks, how often have you been bothered by the following problems? 1. Little interest or pleasure in doing things Not at all 2. Feeling down, depressed, or hopeless Not at all Suicide Screen: C-SSRS Screening [place] Suicide Severity Rating Scale (C-SSRS) screener 1. Over the past month, have you wished you were or wished you could go to sleep and not wake up? No 2. Over the past month, have you had any actual thoughts of killing yourself? No 3. Over the past month, have you been thinking about how you might do this? Response not required due to responses to other questions. 4. Over the past month, have you had these thoughts and had some intention of acting on them? Response not required due to responses to other questions. 5. Over the past month, have you started to work out or worked out the details of how to kill yourself? Response not required due to responses to other questions. 6. If yes, at any time in the past month did you intend to carry out this plan? Response not required due to responses to other questions. 7. In your lifetime, have you ever done anything, started to do anything, or prepared to do anything to end your life (for example, collected pills, obtained a gun, gave away valuables, went to the roof but didn't jump)? No 8. If YES, was this within the past 3 months? Response not required due to responses to other questions. Nursing Annual Screening: Fall History Screen During the past 12 months, have you had any falls? Patient does not report any falls in the past 12 months. MEDICATIONS: Patient is on one of the following medication classes: Antihypertensives, Antidepressants, Antipsychotics, Diuretics, or Controlled substance medication used for pain. FALL RISK ADVICE: Fall Risk Advice provided. Handout entitled Fall Prevention At Home reviewed and given to patient and/or significant other. Script Talk Screen Are you able to read your prescription bottles with your glasses, magnifiers or other aids? Yes or patient not taking any prescriptions. Skin Screen Patient reports any current pressure ulcers, a history of pressure ulcers, or a wound from a medical reimbursement specialist or Patient is bed-confined or a wheelchair-user or Patient requires assistance to transfer/change position No, Skin Screen is Negative Home Abuse/Violence Screen Is your home free of abuse and violence? Yes MOVE! Program Screen Body Mass Index (BMI)= 27.2 [place]: No data available [place] Hgb A1C: No data available [place] Hgb A1C: No data available Point of Care Hgb A1C: POC HGB A1C____ Outpatient Nutrition Screen Body Mass Index (BMI)= 27.2 [place]: No data available [place] Hgb A1C: No data available [place] Hgb A1C: No data available Point of Care Hgb A1C: POC HGB A1C____ Is patient's BMI less than 18.5? No Does patient have swallowing, coughing, or chewing problems affecting oral intake? No Has patient experienced unplanned weight loss or gain greater than 10 pounds over the last 2 months? No Is patient's Hgb A1C (Glycosylated Hemoglobin) greater than 9.5? No Is patient receiving Total Parenteral Nutrition (TPN) or Tube Feedings? No Patient Health Education Screen BARRIERS/SPECIAL NEEDS: No barriers identified PREFERRED STYLE OF LEARNING: Listening Client Assistive Service (RASTA) Screen Does the patient require assistance with outpatient visit? No Toxic Exposure Screening: The /caregiver was asked if they believe the experienced any toxic exposure(s), such as Airborne Hazards and [place], [place] War related exposures, Agent [place], Radiation, contaminated water at [place] or other such exposures, while serving in the [employer]. 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 The /caregiver was informed that we will continue to ask this screening question every 5 years. They can contact their provider/healthcare team if they have concerns about exposures and would like to be screened sooner. Printed information was offered and provided if desired. Influenza Immunization: The patient was given the influenza VIS which lists the benefits and side effects of the vaccine and which reviews the risks of not receiving the flu vaccine. The VIS was reviewed with the patient and they were given an opportunity to ask questions. The patient was provided education on how to decrease the risk of influenza infection including social distancing and use of good hand hygiene. The patient denied any prior severe reaction to the flu vaccine or its components. The patient gave verbal consent to receive the vaccine. Influenza, High Dose, Quadrivalent (Fluzone - syringe) Administered: INFLUENZA, HIGH-DOSE, QUADRIVALENT Date Administered: Mar 29, 2023 08:56 Nurse Practical: SANOFI PASTEUR Lot: [id number] Exp Date: Dec 30, 2023 [facility]: [phone] Admin Route/Site: INTRAMUSCULAR/LEFT DELTOID Dosage: 0.7mL Vaccine Information Statement(s): INFLUENZA(FLU) VACC(INACTIVATED OR RECOMBINANT)VIS Feb 04, 2021 (VIET[place]ESE) Order By: Policy Administered By: Bryanna Winston /erika/ BRYANNA WINSTON LPN LPN Signed: 03/29/2023 08:56 ERLINDA WINSTON [facility] Mar 29, 2023 08:18 AM ADVANCE DIRECTIVE: LOCAL TITLE: AD NOTIFICATION AND SCREENING STANDARD TITLE: ADVANCE DIRECTIVE DATE OF NOTE: MAR 29, 2023@08:18 ENTRY DATE: MAR 29, 2023@08:18:17 AUTHOR: HUANG YEPEZ EXP COSIGNER: URGENCY: STATUS: COMPLETED ADVANCE DIRECTIVE NOTIFICATION: Patient was given written notification of the following rights: 1. Accept or refuse any medical treatment. 2. Complete a durable power of merchant banker for health care. 3. Complete a living will. ADVANCE DIRECTIVE SCREENING: Does patient have an Advance Directive? The patient has an Advance Directive. Does the patient wish to make any changes or revoke their current Advance Directive? No changes requested at this time. /erika/ HUANG YEPEZ Advance Guest Services Manager Signed: 03/29/2023 08:18 HUANG YEPEZ [facility]
--- OUTSIDE RECORDS SUMMARY | 2024-03-19 14:14 | XMS_ITS | Encounter Summary ---
Author Name [facility] Organization [facility] Address [address] [place] [address] Care Team Providers Care Equity Sales Assistant Name Role Phone BRIGETTE PHILLIPS Primary Care Provider Unavailabl e Insurance Providers: [...] PART A Aug 31, 2003 PART A [id number] [phone] [facility] PATIENT MEDICARE (WNR) MEDICARE ([place]) PART B Aug 31, 2003 PART B [id number] [phone] [facility] PATIENT Selected Encounter This section includes the information on record at [place] for the Encounter. Date/Time Encounter Type Encounter Description Reason Pro vider Source Mar 13, 2024 08:18 AM Outpatient Encounter PRIMARY CARE/MEDICINE IHE Encounter Template Text not used by [place] Plan of Treatment: Future Appointments (+ 6 months) and Future Tests (+/- 45 days) The Plan of Treatment section includes future care activities for the patient from all [facility] treatment[facility]. This section includes future appointments and future orders which are active, pending or scheduled. Active, Pending, and Scheduled Orders This section includes a listing of several types of active, pending, and scheduled orders, including clinic medications orders, diagnostic test orders, procedure orders and consult orders; where the start date of the order is 45 days before the date of the Encounter or 45 days after the date of theEncounter. The data comes from all [place] treatment facilities. Test Date/Time Test Type Test Details Facility Name Apr 04, 2024 12:00 AM Laboratory - Chemi stry Order EXTRA GOLD GEL TUBE SERUM SP ONCE [facility] Apr 04, 2024 12:00 AM Laboratory - Chemi stry Order CBC BLOOD SP ONCE [facility] Apr 04, 2024 12:00 AM Laboratory - Chemi stry Order BASIC METABOLIC PANEL+MG PLASMA SP [facility] Apr 04, 2024 12:00 AM Laboratory - Chemi stry Order AST/SGOT PLASMA SP ONCE [facility] Apr 04, 2024 12:00 AM Laboratory - Chemi stry Order ALT/SGPT PLASMA SP ONCE [facility] Apr 04, 2024 12:00 AM Laboratory - Chemi stry Order LIPID PANEL,NON-FASTING PLASMA SP [facility] Social History: Smoking Status (Most current) and Tobacco Use (All prior to encounter date) This section includes the most current, and the historical, smoking and tobacco- related health factors from the [place] facility where the Encounter took place. Current Smoking Status This section includes the most current smoking, or tobacco-related health factor, from the [place] facility where the Encounter took place. Date/Time Current Smoking Status Comment Facil ity Mar 29, 2023 09:00 AM [place]-TOBACCO NEVER USED [facility] Tobacco Use History This section includes a history of the smoking, or tobacco-related health factors, that were collected on or before the date of the Encounter. The data comes from the [place] facility where the Encounter took place. Date/Time Smoking Status/Tobacco Use Comment F acility Mar 13, 2022 10:00 AM VA-TOBACCO NEVER USED [facility] Mar 02, 2021 03:30 PM VA-TOBACCO NEVER USED [facility] Jan 06, 2020 11:08 AM VA-TOBACCO NEVER USED [facility] Advance Directives: All historical and current Section Date Range: From patient's date of to the date document was created. This section includes ALL of a patient's completed or amended [place] Advance and Rescinded Directives. The entries below indicate that a directive exists for the patient, but an actual copy is not included with this document. The data comes from all [place] facilities. Date Advance Directives Provider Source Apr 25, 2020 ADVANCE DIRECTIVE EARLINE MANUEL [facility] Apr 25, 2020 ADVANCE DIRECTIVE DISCUSSION ANNKIA MANUEL [facility] Encounter Notes: All associated encounter notes This section contains the clinical notes associated to the Encounter. Date/Time Encounter Note(s) Provider Source Mar 13, 2024 08:18 AM REPORT OF CONTACT: LOCAL TITLE: APPOINTMENT SCHEDULING NOTE STANDARD TITLE: REPORT OF CONTACT DATE OF NOTE: MAR 13, 2024@08:18 ENTRY DATE: MAR 13, 2024@08:19:11 AUTHOR: COTY SÁNCHEZ EXP COSIGNER: URGENCY: STATUS: COMPLETED Attempted to schedule Recall/Patient Center Scheduling (PtCSch) Contact attempt made to [place] 1st attempt Letter - Sent letter by regular [place] mail to address on file: [facility] [address], [place] [address] 2nd attempt Text message Disposition order request after 03/27/24 If [place] calls back, schedule appt for: MARY KATE RENEE [place] [address] [facility] ANNUAL [id number] NF FED 04/06/23 /erika/ COTY SÁNCHEZ JUSTICE PROFESSOR Signed: 03/13/2024 08:20 COTY SÁNCHEZ [facility]
--- OUTSIDE RECORDS SUMMARY | 2024-03-19 14:15 | XMS_ITS | Clinical Summary ---
Author Organization [facility]@ [facility] Address [place], [place] [address] Care Team Providers Care Legislative Aide Name Role Phone Lian Somers Primary Care Provider [phone] Allergies Active Allergy Reactions Criticality Noted Date Comments Sulfa (Sulfonamide Antibiotics) Rash 12/31 mild rash Medications Medication Sig Dispensed Refills Start Date End Date Status hydroCHLOROthiazide (HCTZ) 25 mg tablet Take 25 mg by mouth once daily. Active simvastatin (ZOCOR) 20 mg tablet Take 20 mg by mouth at bedtime. Active acetaminophen (TYLENOL EXTRA STRGTH) 500 mg tablet Take 500-1,000 mg by mouth every 6 hours if needed. Max acetaminophen dose: 4000mg in 24 hrs. Active fluticasone (50 mcg per actuation) nasal solution (FLONASE) once daily. 08/16/2022 Active MULTIVITAMIN ORAL Take by mouth once daily. Active acetaminophen (TYLENOL EXTRA STRGTH) 500 mg tabletIndications:L umbar radiculopathy Take 2 Tablets (1,000 mg) by mouth every 6 hours. Max acetaminophen dose: 4000mg in 24 hrs. 30 Tablet 12/03/2022 Active aspirin (ECOTRIN) 81 mg enteric coated tabletIndications:L umbar radiculopathy Take 1 Tablet (81 mg) by mouth once daily with a meal. 30 Tablet 12/04/2022 Active methocarbamoL (ROBAXIN) 500 mg tabletIndications:L umbar radiculopathy Take 1 Tablet (500 mg) by mouth every 6 hours if needed for Muscle Spasm PO 1st choice. 30 Tablet 12/03/2022 Active oxyCODONE (ROXICODONE) 5 mg immediate release tabletIndications:L umbar radiculopathy Take 1-2 Tablets (5-10 mg) by mouth every 4 hours if needed for Pain (First choice for severe pain.). 30 Tablet 12/03/2022 Active polyethylene glycoL (MIRALAX) 17 gram/scoop powderIndications:L umbar radiculopathy Mix 17 grams in at least 8 ounces of fluid as directed by mouth or nasogastric tube once daily if needed for Constipation. 510 g 12/03/2022 Active sennosides-docusate (SENOKOT S) (8.6-50 mg) tabletIndications:L umbar radiculopathy Take 1-4 Tablets by mouth two times daily. 30 Tablet 12/03/2022 Active WalkerIndications:L umbar radiculopathy Walker with front wheels for home use for 3 months. 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 Hypertension 01/27/2021 Hyperlipidemia 01/27/2021 Lumbar radiculopathy 01/27/2021 Immunizations Name Administration Dates Next Due COVID-19 vaccine ([employer] 30mcg/0.3mL) NICOLAS Bhatia 03/30/2021 Social History Tobacco Use Types Packs/Day Years Used Date Smoking Tobacco: Never Smokeless Tobacco: Never Alcohol Use Standard Drinks/Week Comments Not Currently 7 (1 standard drink = 0.6 oz pur e alcohol) Social Connections Answer Date Recorded Frequency of Communication with Friends and Fami ly Not on file 12/01/2022 Sex and Gender Information Value Date Recorded Sex Assigned at Not on file Gender Identity Not on file Sexual Orientation Not on file Obstetrics History Last Filed Vital Signs Vital Sign Reading Time Taken Comments Blood Pressure 125/78 12/03/2022 8:00 AM CDT Pulse 76 12/03/2022 8:00 AM CDT Temperature 37.1 ??C (98.7 ??F) 12/03/2022 8:00 AM CD T Respiratory Rate 16 12/03/2022 8:00 AM CDT Oxygen Saturation 96% 12/03/2022 8:00 AM CDT Inhaled Oxygen Concentration - - Weight 90.2 kg (198 lb 14.4 oz) 12/01/2022 8:02 AM CDT Height 185.4 cm (6' 1) 12/01/2022 8:02 AM CDT Body Mass Index 26.24 12/01/2022 8:02 AM CDT Plan of Treatment Health Maintenance Due Date Last Done Comments Tdap 1949 Depression screening for age 12+ 1950 BMI (ht and wt on same day) for age 18+ 1956 Tetanus booster 1958 Zoster (shingles) series for age 50+ (1 of 2) 1988 RSV vaccine for adults or pr egnancy (1 - 1-dose 60+ series) 1998 Pneumococcal series for age 65+ (1 of 1 - PCV) 09/22/2003 COVID-19 vaccine series ( - season) 2024 04/22/2022, 03/30/2021 Influenza for age 65+ 03/02/2024 Medical Devices Implanted Type Area School Bus Aide Device Identifier Shelf Expiration Date Model / Serial / Lot Leonel Lmbr 60x5.5mm Tsrh 3d Cvd Titnm - [id number] Implanted:Qty: 2 on 12/01/2022 by Diogenes Galindo MD at [facility] Spine Implants N/A: Spine Med[employer]onic Spine/Ortho [id number] / / Set Screw Lmbr Tsrh 3dx - [id number] Implanted:Qty: 5 on 12/01/2022 by Diogenes Galindo MD at [facility] N/A: Spine [employer] Spine/Ortho [id number] / / Cnnctr Lmbr Tsrh 3dx Offsettitnm - [id number] Implanted:Qty: 4 on 12/01/2022 by Diogenes Galindo MD at [facility] N/A: Spine [employer] Spine/Ortho [id number] / / Cnnctr Lmnolvia Myers Tsrh 3dx Offsettitnm - [id number] Implanted:Qty: 1 on 12/01/2022 by Diogenes Galindo MD at [facility] N/A: Spine [employer] Spine/Ortho [id number] / / Screw Lmbr Post 6.5x35mm Tsrh 3dx Og Thin [place] - [id number] Implanted:Qty: 2 on 12/01/2022 by Diogenes Galindo MD at [facility] N/A: Spine [employer] Spine/Ortho [id number] / / Screw Lmbr Post 6.5x45mm Tsrh 3dx Og Thin Va - [id number] Implanted:Qty: 2 on 12/01/2022 by Diogenes Galindo MD at [facility] N/A: Spine [employer] Spine/Ortho [id number] / / Screw Lmbr Post 6.5x40mm Tsrh 3dx Og Thin Va - [id number] Implanted:Qty: 1 on 12/01/2022 by Diogenes Galindo MD at [facility] N/A: Spine [employer] Spine/Ortho [id number] / / Advance Directives Documents on File Type Date Recorded Patient Laboratory Technology Teacher Expl anation Healthcare Directive 03/17/2009 009 * Full Code (Latest Code Status on File) Date Activated Date Inactivated Comments 12/01/2022 5:48 PM 12/03/2022 3:51 PM Question Answer Comments Code Status Discussion: Reviewed Preferences * Full Code Date Activated Date Inactivated Comments 01/27/2021 5:27 PM 01/28/2021 3:57 PM Question Answer Comments Code Status Discussion: Not Discussed Care Teams Legislative Aide Relationship Specialty Start Date End Date Lindarosey Lian [address] [place] [address] PCP - General 01/10/21
== END 2024-03-19 14:12 | disposition home or self-care (01) ==
LOC: NFLDREF 14:13
PROVIDERS: PCP Internal Medicine; Visit Provider Internal Medicine
DX: R42 Dizziness and giddiness (principal)
CPT/HCPCS: 80048

== ENCOUNTER 2024-09-02 09:53 | Outpatient (RCR) | payer MEDICARE, OTHER, SELFPAY ==
--- NOTE | 2024-09-02 12:07 | PT.OPE ---
PT [facility] Outpatient Eval PT [facility] Outpatient Eval Start: 09/02/24 08:47 Freq: Status: Active Protocol: Document 09/02/24 12:04 CJT (Rec: 09/02/24 12:07 RAQUELT [id number]) E-signed By Jus Kerr PT Physical Therapy Outpatient Evaluation Insurance Information Recert Due Date 12/01/24 Insurance Name Medicare B Medical Diagnosis M54.2 - neck pain Treating Diagnosis M54.2 - neck pain Referring Nico Pruitt MD Subjective Preferred Name Adilson Shepherd Pt presents with complaints of neck pain. No known injury. Pt notes that he has pain above his eye brows and some head pain. Both side of his head hurt. Pt is unable to tell me if one side of his head is more painful than the other. He is also unable to point to the area that hurts the most, although consistently reaches to the back of his R suboccipital region when he does experience pain. Has tried IBP and this has not been helpful. Denies numbness/tingling into arms or hands. No issues with sleeping at this time. Rates pain as 8/10 currently. Pain Comments 8/10 Date of Last Physician Visit 09/01/24 Current Work Status Retired Precautions Treatment Precautions/Contraindications Neck pain (Acute) M54.2 - Cervicalgia (ICD-10) Lumbar radiculopathy (Acute) M54.16 - Radiculopathy, lumbar region (ICD-10) Sinus pressure (Acute) J34.89 - Other specified disorders of nose and nasal sinuses (ICD-10) Encounter for screening (Acute 03/19/15) Z13.9 - Encounter for screening, unspecified (ICD-10 ) Hypertension (Acute) I10 - Essential (primary) hypertension (ICD-10) Erectile dysfunction (Acute) N52.9 - Male erectile dysfunction, unspecified (ICD- 10) Hyperlipidemia (Acute) E78.5 - Hyperlipidemia, unspecified (ICD-10) Therapy Limitations/Systems Review Not Limited Objective Other/Pertinent Objective Cervical ROM (pre, post- treatment measurements) *pt reports no pain with all cervical motions post- treatment Extension - 27(30), pt notes increased pain in center of posterior head and neck Flexion - 43(40), pt notes increased pain with flexion, but reports that the pain gradually drifts away when in this position R/L Side Bend - 12/7(12/8) * pain noted initially with side bending that gradually diminishes R/L Rotation - 28/40(57/40) * pain in posterior R skull/neck with rotation to R R Shoulder AROM - WFL L Shoulder AROM - WFL Cervical Strength - grossly 4+ /5 MMT R Shoulder Strength - grossly 4+/5 MMT for all L Shoulder Strength - grossly 4+/5 MMT for all Palpation: pt reports tenderness/pain with palpation to R>L suboccipitals, cervical paraspinals, scalenes , SCM, UT, and pec minor; pts neck feels very stiff with mobilizations and there is a hard end feel with overpressure at end range for all motions of the neck, likely due to significant arthritis and joint-space narrowing. Posture: forward head position with some protraction of B shoulders. Special Testing Spurling's Compression: negative Distraction: no change DTRs: 2+ tricep, bicep, brachioradialis bilaterally Assessment Assessment/Impression Adilson is a very pleasant 83 year old Male who presents to our clinic for evaluation and treatment of neck pain. Pt struggled to provide a subjective history this day and struggled throughout today 's evaluation with answering simple questions including where he was experiencing pain . Palpation of pts cervical muscles revealed significant muscles spasms throughout all cervical muscles with R side of head and neck reporting to be more painful than L. ROM was very restricted for cervical motions today and were painful with initial measurements. Pt reported no pain with all cervical motions following today's treatment. The nature of the pts condition was explained and all questions were answered to the pts satisfaction. Skilled PT services are medically necessary to address deficits and return patient to highest level of function. Recommend physical therapy sessions 1/ week for 2-4 weeks. Pt agrees with this plan. Printout of HEP was given for I completion and pt gives verbal understanding of each exercise . Primary Functional Limitations Rolling over in bed, turning head to look for traffic while driving Plan of Care Rehabilitation Potential Good Physical Therapy Goals STG - To be completed in 2-3 weeks: 1. Pt will demonstrate improved cervical strength to 5/5 MMT in all directions to provide greater support to cervical spine and head. 2. Pt will report reduction in neck pain by factor of 2 so that they may roll over in bed without waking due to pain. 3. Pt will report reduction in headache intensity by factor of 2 so that they may remain functional at home when headaches do occur. LTG - To be completed at time of discharge: 1. Pt to be I with HEP so that they may I manage progression of symptoms. 2. Pt will demo 60 degrees cervical rotation ROM bilaterally so that they may look over shoulder while driving to watch for traffic. 3. Pt will report ability to sleep throughout the night without waking due to pain so that they may wake well rested with reduced mental fatigue during waking hours. Treatment Plan/Direct Interventions Electrical Stimulation,Heat, Joint Mobilization,Manual Therapy,Neuromuscular Re-ed, Self-Care/Home Management, Therapeutic Activities, Therapeutic Exercises Frequency/Duration 1/week for 2-4 weeks Patient Will Be Discharged From Therapy Completion of LTG(s),Skills Plateau,Independent w/HEP, Independently Progressing Evaluation Billing Untimed Code Treatment Minutes 30 PT Eval No Charge No Complexity Low Certification Information Initial Certification Date 09/02/24 Ending Certification Date 12/01/24 Provider Signature Required Yes Provider Signature Shows Agreement With POC & Medical Necessity Physician NPI Number Write NPI# Here Physician Comment/Change : Physician Signature & Date Requested Please Sign/Date Here
== END 2024-12-31 23:59 | disposition home or self-care (01) ==
PROVIDERS: PCP Internal Medicine; Visit Provider Family Medicine
DX: M54.2 Cervicalgia (principal); M54.16 Radiculopathy, lumbar region; Z51.89 Encounter for other specified aftercare
CPT/HCPCS: 97140; 97161